=== PATIENT | female | born 1975 | race American Indian/Alaskan Native ===

== ENCOUNTER 2017-03-25 08:10 | Day surgery (SDC) | payer BC ==
[2017-03-25] MEDS ORDERED: Propofol 10 mg/ml Inj (20 ML) ONE (09:33)
[2017-03-25] MEDS ORDERED: Midazolam 2 MG/2 ML VIAL ONE (09:33)
[2017-03-25] MEDS ORDERED: Lidocaine Hydrochloride 5 ML INJ ONE (09:34)
[2017-03-25] MEDS ORDERED: Lactated Ringer's 1,000 ML IV ONE (09:57)
--- NOTE | 2017-03-25 10:13 | PCM.SURG1 ---
Surgeon's Initial Post Op Note - Surgeon's Notes Surgeon: dr maloney [employer] Architect: none Type of Anesthesia: IV Sedation Anesthesia Administered By: dr anderson Pre-Operative Diagnosis: 41yr at 8weeks missed Operative Findings: see the op reort Post-Operative Diagnosis: same Operation Performed: suction d&c Specimen/Specimens Removed: poc. chromosome Estimated Blood Loss: EBL {In ML}: 20 Blood Products Given: N/A Drains Used: No Drains Post-Op Condition: Good Date of Surgery/Procedure: 03/25/17 Time of Surgery/Procedure: 10:30
[2017-03-25] MEDS ORDERED: HYDROmorphone 0.5 mg/0.5 ml ISec IVP PRN (10:14)
[2017-03-25 10:25] VITALS: O2SAT 100
[2017-03-25 11:38] VITALS: BP 132/90; PULSE 80; RESP 18; TEMP 97.5
--- NOTE | 2017-03-27 00:12 | OP ---
DATE OF SURGERY: 03/25/2017 PREOPERATIVE DIAGNOSIS: A 41 years old 5, para 3 at 7 weeks with missed . POSTOPERATIVE DIAGNOSIS: A 41 years old 5, para 3 at 7 weeks with missed . PROCEDURE PERFORMED: Suction dilation and curettage. SURGEON: Oliver Carmichael MD ANESTHESIA: General anesthesia. ANESTHESIOLOGIST: Dr. Kyle. COMPLICATIONS: None. SPECIMEN: POC and chromosomes. ESTIMATED BLOOD LOSS: 20 mL. DESCRIPTION OF PROCEDURE: After informed consent was obtained, the patient was brought to the operating room, placed on the table where general anesthesia was given. Once the anesthesia was given, the patient was prepped and draped in the normal sterile fashion. Examination found the uterus to be 7-week size. No pelvic or adnexal masses. Anterior lip of the cervix was grasped with a tenaculum, gentle dilatation of the cervix was done. A 6-Spanish catheter was used. Then, the 7-Spanish was used for the suction. Sharp curettage was done. was used again. There were normal products. Tenaculum was taken out of the anterior lip of the cervix. The patient tolerated the procedure well. All lap, sponge, and instrument counts were correct x2. Oliver Carmichael MD
== END 2017-03-25 12:00 | disposition home or self-care (01) ==
LOC: C.SDS 08:10
PROVIDERS: ATTEND Obstetrics & Gynecology
DX: O02.1 Missed abortion (principal); Z3A.01 Less than 8 weeks gestation of pregnancy
CPT/HCPCS: 36415; 59820; 86850; 86900; 88233; 88262; J2250; J2704; J3010; J7120